=== PATIENT | male | born 2000 | race Hispanic/Latino ===

== ENCOUNTER 2020-11-02 09:24 | Emergency (ER) | payer SELFPAY ==
[~2020-11-02] VITALS: Ht 177.8 cm; Wt 74.8 kg
== END 2020-11-02 12:27 | disposition home or self-care (01) ==
LOC: ER 09:43
DX: R06.02 Shortness of breath (principal); I10 Essential (primary) hypertension; F41.9 Anxiety disorder, unspecified
CPT/HCPCS: 71045; 87400; 93005; 99283